=== PATIENT | female | born 1985 | race Caucasian/White ===

== ENCOUNTER 2016-12-20 02:26 | Observation (INO) | payer MEDICARE, MEDICAID ==
[~2016-12-20] VITALS: Ht 167.6 cm; Wt 137.3 kg
[2016-12-20] VITALS (9 sets, daily range): BP systolic 93–137; BP diastolic 49–89; Ht 167.6 cm; Wt 137.3 kg
[2016-12-20 03:08] LABS: APPEARANCE CLEAR (CLEAR); COLOR YELLOW (YELLOW)
[2016-12-20 03:09] LABS: BILIRUBIN NEGATIVE (NEGATIVE); GLUCOSE NEGATIVE (NEGATIVE); KETONE NEGATIVE (NEGATIVE); LEUKOCYTE ESTERASE NEGATIVE (NEGATIVE); NITRITE NEGATIVE (NEGATIVE); PROTEIN NEGATIVE (NEGATIVE); UROBILINOGEN NORMAL (NORMAL)
[2016-12-20 03:14] LABS: BASOPHILS 0.2 % (0.0-2.0); EOSINOPHILS 2.8 % (0-7); HEMATOCRIT 34.4 % (36.0-48.0); IMMATURE GRANULOCYTES 0.8 % (0-5); LYMPHOCYTES 23.8 % (15-50); MCH 27.7 pg (26.0-34.0); MCV 86.6 fL (80.0-100.0); MEAN PLATELET VOLUME 9.6 fL (7.4-10.4); NEUTROPHILS 67.4 % (40-80); PLATELET COUNT 378 10x3/uL (130-400); RBC 3.97 10x6/uL (4.00-5.40); RDW 16.2 % (11.5-14.5); WBC 10.6 10x3/uL (4.8-10.8)
[2016-12-20 03:15] LABS: UDS - AMPHET NEGATIVE QUAL (NEGATIVE); UDS - BARB NEGATIVE QUAL (NEGATIVE); UDS - BENZO POSITIVE QUAL (NEGATIVE); UDS - COCAINE NEGATIVE QUAL (NEGATIVE); UDS - METH NEGATIVE QUAL (NEGATIVE); UDS - OPIATE NEGATIVE QUAL (NEGATIVE); UDS - PCP NEGATIVE QUAL (NEGATIVE); UDS - THC POSITIVE QUAL (NEGATIVE)
[2016-12-20 03:21] LABS: HCG SERUM NEGATIVE (NEGATIVE)
[2016-12-20 03:29] LABS: ALBUMIN 2.8 g/dL (3.4-5.0); ALKALINE PHOSPHATASE 97 U/L (46-116); ALT (SGPT) 31 U/L (10-68); BILIRUBIN - TOTAL 0.13 mg/dL (0.2-1.3); CALC OSMOLALITY 280 mosm/kg (275-300); CALCIUM 8.5 mg/dL (8.5-10.1); CARBON DIOXIDE 29.8 mmol/L (21.0-32.0); CHLORIDE - SERUM 104 mmol/L (98-107); CREATININE - SERUM 0.8 mg/dL (0.6-1.3); GLUCOSE 96 mg/dL (74-106); POTASSIUM - SERUM 3.7 mmol/L (3.5-5.1); PROTEIN - SERUM 6.8 g/dL (6.4-8.2); SODIUM 141 mmol/L (136-145); UREA NITROGEN 12 mg/dL (7-18); eGFR NON AFRICAN AMERICAN 90 mL/min (90-120)
--- NOTE | 2016-12-20 05:45 | NUR ---
PT ARRIVED TO ICU VIA HOSPITAL BED. PT LETHARGIC; AROUSES TO VOICE. ON 2L VIA NC. NON SLIP SOCKS PLACED ON PT. BED ALARMS ON. PHONE AND VALUABLES SENT HOME WITH . WILL CONTINUE TO MONITOR.
--- NOTE | 2016-12-20 07:00 | NUR ---
ASSESSMENT COMPLETE PER FLOWSHEET. PT SLEEPING NO DISTRESS NOTED. SR UP X 2.
--- NOTE | 2016-12-20 10:00 | NUR ---
SLEEPING NO DISTRESS NOTED. SR UP X 2. CALL LIGHT WITHIN REACH.
--- NOTE | 2016-12-20 14:00 | NUR ---
AWAKEN AND WANTING TO EAT. INSISTING ON [place] BEING TAKEN OUT AND DCD.
--- NOTE | 2016-12-20 14:45 | NUR ---
CORRINA SOLARES APN HERE VSS. PT IS MEDICALLY STABLE FOR DISCHARGE.
--- NOTE | 2016-12-20 15:01 | NUR ---
PATIENT IS AWAKE AND ALERT. SHE IS TEARY AND DEPRESSED ABOUT NOT BEING ABLE TO SEE HER 4 YR OLD DAUGHTER. SHE STATES SHE HAS BEEN IN [facility] TWICE AND [facility] ONCE WITH PREVIOUS SUICIDE ATTEMPTS. I HAVE CONTACTED [facility] IN [place] AND SPOKE WITH PENNY. I HAVE FAXED HER INFORMATION TO HER FOR REVIEW. PATIENT STATES SHE IS WILLING TO GO TO INPATIENT PSYCH. SHE IS CONCERNED ABOUT A COURT DATE IN 2 DAYS. I URGED HER TO LET THEM KNOW SHE A COURT DATE AND IF SHE IS NOT ABLE TO GO THEY WILL ASSIST HER IN LETTING THE COURTS KNOW WHY. WILL AWAIT DETERMINATION FOR [facility].
--- NOTE | 2016-12-20 15:04 | NUR ---
PATIENT IS AWAKE AND ALERT. SHE IS TEARY AND DEPRESSED ABOUT NOT BEING ABLE TO SEE HER 4 YR OLD DAUGHTER. SHE STATES SHE HAS BEEN IN [facility] TWICE AND [facility] ONCE WITH PREVIOUS SUICIDE ATTEMPTS. I HAVE CONTACTED [facility] IN [place] AND SPOKE WITH PENNY. I HAVE FAXED HER INFORMATION TO HER FOR REVIEW. PATIENT STATES SHE IS WILLING TO GO TO INPATIENT PSYCH. SHE IS CONCERNED ABOUT A COURT DATE IN 2 DAYS. I URGED HER TO LET THEM KNOW SHE A COURT DATE AND IF SHE IS NOT ABLE TO GO THEY WILL ASSIST HER IN LETTING THE COURTS KNOW WHY. WILL AWAIT DETERMINATION FOR [facility]. PATIENT'S PCP IS DR. REIS. SHE GETS HER MEDS FROM [facility]. PATIENT STATES SHE IS NOT EMPLOYED SHE IS DISABLED. PATIENT DENIES [facility] HOME HEALTH AND DOES NOT USE ANY DME. PATIENT STATES 5-6 STEPS TO ENTER HER HOME. Is the patient Alert and Oriented? Yes 0 * How many steps to enter\exit or inside your home? 5-6 0 * PCP DR. REIS 0 * Pharmacy [facility] ON [address] 0 * Preadmission Environment Home Alone 0 * ADLs Independent 0 * Equipment None 0 * List name and contact numbers for known caregivers / representatives who currently or will assist patient after discharge: MOTHER: KENNEDY LUNA [phone] 0 * Community resources currently utilized None 0 * Additional services required to return to the preadmission environment? Yes 0 * Can the patient safely return to the preadmission environment? No 0 * Has this patient been hospitalized within the prior 30 days at any hospital? No 0
--- NOTE | 2016-12-20 15:31 | NUR ---
PT WANTING TO LEAVE BEING DISRUPTIVE. [place] [employer] CALLED.
--- NOTE | 2016-12-20 15:39 | NUR ---
PT RETURN BACK TO ROOM. TALKING TO PHILIPPE SAFETY ADMINISTRATOR RN ABOUT DAUGHTER.
--- NOTE | 2016-12-20 16:16 | NUR ---
PATIENT'S NURSE, NINO VASQUEZ, JONATHNA, RECEIVIED CALL FROM [facility] IN [place]. THEY STATED THEY WOULD NOT BE ABLE TO ACCEPT PATIENT UNTIL 24 HOURS POST INGESION. THAT WOULD BE AT 0100. I WILL CALL THEM IN AM FOR POSSIBLE PLACEMENT. CM TO FOLLOW.
--- NOTE | 2016-12-20 18:00 | NUR ---
[facility] IN [place] CALLED WANTED TO SPEAK TO PT. PT ON PHONE SPEAKING TO NURSE. NURSE AT [facility] STATES PT DOESNT WANT TO COME ON OWN WILL WILL NEED TO GET A 72 HOUR HOLD TO BE ACCEPTED AND PAPER WORK WILL NEED TO BE FAXED. DR MILES CALLED AND INSTRUCTED ALL ABOVE.
--- NOTE | 2016-12-20 19:30 | NUR ---
ASSESSMENT COMPLETE. S1S2. RR SHALLOW; CLEAR; NON LABORED. RADIAL AND PEDAL PULSES PALPATED. PERRLA 2MM; BRISK. NO SIGNS OF DISTRESS. CALL LIGHT IN REACH. WILL CONTINUE TO MONITOR. SEE FLOW SHEET FOR DETAILS.
--- NOTE | 2016-12-20 20:28 | NUR ---
PT INFORMED OF RIGHTS; SIGNED FORMS. PT INFORMED OF CONSENT TO TRANSFER TO [facility]; PT SIGNED FORMS. PT EXPRESSES CONCERNS THAT NO MATTER WHERE SHE GOES SHE WILL NEVER GET THE HELP SHE NEEDS. PT STATES SHE IS DEPRESSED BECAUSE NOTHING IS WORKING IN HER LIFE.
--- NOTE | 2016-12-20 21:45 | NUR ---
SPOKE WITH PRESTON GURROLA RN FROM [facility]. GAVE REPORT ON PT. PT ACCEPTED INTO FACILITY. AMBULANCE CALLED TO [facility] PT.
--- NOTE | 2016-12-20 22:30 | NUR ---
[facility] PICKED UP PT TO TRANSFER OUT.
== END 2016-12-20 22:30 | disposition short-term general hospital (02) ==
LOC: D.ER 02:26 → OBSVTIME 05:06 → D.ICU 05:06
PROVIDERS: Emergency Medicine; ADMIT Emergency Medicine
DX: T14.91 Suicide attempt (principal)

== ENCOUNTER 2017-11-08 14:45 | Emergency (ER) | payer MEDICARE ==
[2016-12-20 08:56] VITALS: BMI 48.8
== END 2017-11-08 17:02 | disposition home or self-care (01) ==
LOC: D.ER 14:45
DX: S61.452A Open bite of left hand, initial encounter (principal); S61.451A Open bite of right hand, initial encounter; W54.0XXA Bitten by dog, initial encounter; Y93.89 Activity, other specified; Y92.019 Unspecified place in single-family (private) house as the place of occurrence of the external cause; B35.4 Tinea corporis

== ENCOUNTER 2018-12-05 21:01 | Emergency (ER) | payer OTHER ==
[~2018-12-05] VITALS: Ht 157.5 cm; Wt 106.8 kg
[2018-12-05 21:12] VITALS: Ht 157.5 cm; Wt 106.8 kg
[2018-12-05] MEDS ORDERED: PROZAC40 MG PO (21:14)
[2018-12-05] MEDS ORDERED: MINIPRESS2 MG PO (21:14)
[2018-12-05] MEDS ORDERED: TOPAMAX50 MG PO (21:15)
[2018-12-05 21:45] LABS: BASOPHILS 0.1 % (0-2); EOSINOPHILS 1.2 % (0-7); HEMATOCRIT 38.3 % (36.0-48.0); HEMOGLOBIN 12.3 g/dL (12-16); IMMATURE GRANULOCYTES 0.3 % (0-5); LYMPHOCYTES 13.1 % (15-50); MCH 26.4 pg (26.0-34.0); MCHC 32.1 g/dL (31.0-37.0); MCV 82.2 fL (80.0-100.0); MEAN PLATELET VOLUME 10.3 fL (7.4-10.4); NEUTROPHILS 82.3 % (40-80); PLATELET COUNT 354 10x3/uL (130-400); RBC 4.66 10x6/uL (4.00-5.40); RDW 16.5 % (11.5-14.5); WBC 13.8 10x3/uL (4.8-10.8)
[2018-12-05 22:01] LABS: UDS - AMPHET NEGATIVE QUAL (NEGATIVE); UDS - BARB NEGATIVE QUAL (NEGATIVE); UDS - BENZO NEGATIVE QUAL (NEGATIVE); UDS - COCAINE NEGATIVE QUAL (NEGATIVE); UDS - OPIATE NEGATIVE QUAL (NEGATIVE); UDS - PCP NEGATIVE QUAL (NEGATIVE); UDS - THC POSITIVE QUAL (NEGATIVE)
[2018-12-05 22:02] LABS: APPEARANCE HAZY (CLEAR); BILIRUBIN NEGATIVE (NEGATIVE); COLOR RED (YELLOW); GLUCOSE NEGATIVE (NEGATIVE); KETONE NEGATIVE (NEGATIVE); NITRITE NEGATIVE (NEGATIVE); PROTEIN 1+ mg/dL (NEGATIVE); UROBILINOGEN NORMAL (NORMAL)
[2018-12-05 22:03] LABS: ALBUMIN 3.1 g/dL (3.4-5.0); ALKALINE PHOSPHATASE 102 U/L (46-116); ALT (SGPT) 17 U/L (10-68); BILIRUBIN - TOTAL 0.14 mg/dL (0.2-1.3); CALC OSMOLALITY 278 mosm/kg (275-300); CALCIUM 8.1 mg/dL (8.5-10.1); CARBON DIOXIDE 21.7 mmol/L (21.0-32.0); CHLORIDE - SERUM 106 mmol/L (98-107); CREATININE - SERUM 0.7 mg/dL (0.6-1.3); GLUCOSE 94 mg/dL (74-106); POTASSIUM - SERUM 3.8 mmol/L (3.5-5.1); PROTEIN - SERUM 6.9 g/dL (6.4-8.2); SODIUM 140 mmol/L (136-145); UREA NITROGEN 12 mg/dL (7-18); eGFR NON AFRICAN AMERICAN > 90 mL/min (90-120)
[2018-12-05 22:04] LABS: BACTERIA FEW /hpf (NONE SEEN); EPITHELIAL CELLS 0-5 /hpf (0-5); HCG URINE NEGATIVE (NEGATIVE); RED CELLS - URINE >50 /hpf (0-5); WHITE CELLS - URINE 0-5 /hpf (0-5)
[2018-12-05] MEDS ORDERED: VISTARIL25 MG PO (22:13)
[2018-12-05 23:38] VITALS: BP 141/71
== END 2018-12-05 23:38 | disposition home or self-care (01) ==
LOC: D.ER 21:01
PROVIDERS: Family Medicine
DX: F41.9 Anxiety disorder, unspecified (principal); F41.0 Panic disorder [episodic paroxysmal anxiety]

== ENCOUNTER 2019-01-14 12:50 | Emergency (ER) | payer OTHER, MEDICAID ==
[~2019-01-14] VITALS: Ht 157.5 cm; Wt 102.7 kg
[~2019-01-14 12:50] MED LIST: MINIPRESS2 MG PO; PROZAC40 MG PO; TOPAMAX50 MG PO; VISTARIL25 MG PO
[2019-01-14 13:00] VITALS: BP 143/80; Ht 157.5 cm; Wt 102.7 kg
== END 2019-01-14 14:56 | disposition home or self-care (01) ==
LOC: D.ER 12:50
DX: F22 Delusional disorders (principal); F60.3 Borderline personality disorder; Z86.59 Personal history of other mental and behavioral disorders

== ENCOUNTER 2019-01-25 16:34 | Emergency (ER) | payer OTHER, MEDICAID ==
[~2019-01-25] VITALS: Ht 157.5 cm; Wt 68.2 kg
[2019-01-25 17:05] VITALS: Ht 157.5 cm; Wt 68.2 kg
[2019-01-25 17:31] LABS: APPEARANCE CLEAR (CLEAR); BILIRUBIN NEGATIVE (NEGATIVE); COLOR YELLOW (YELLOW); GLUCOSE NEGATIVE (NEGATIVE); KETONE MODERATE mg/dL (NEGATIVE); NITRITE NEGATIVE (NEGATIVE); PROTEIN NEGATIVE (NEGATIVE); SPECIFIC GRAVITY 1.015 (1.005-1.020); UDS - AMPHET NEGATIVE QUAL (NEGATIVE); UDS - BARB NEGATIVE QUAL (NEGATIVE); UDS - BENZO NEGATIVE QUAL (NEGATIVE); UDS - COCAINE NEGATIVE QUAL (NEGATIVE); UDS - OPIATE NEGATIVE QUAL (NEGATIVE); UDS - PCP NEGATIVE QUAL (NEGATIVE); UDS - THC POSITIVE QUAL (NEGATIVE); UROBILINOGEN NORMAL (NORMAL)
[2019-01-25 17:53] LABS: HCG URINE NEGATIVE (NEGATIVE)
[2019-01-25 17:58] LABS: BASOPHILS 0.1 % (0-2); EOSINOPHILS 0.4 % (0-7); HEMATOCRIT 39.4 % (36.0-48.0); HEMOGLOBIN 12.6 g/dL (12-16); IMMATURE GRANULOCYTES 0.2 % (0-5); LYMPHOCYTES 18.8 % (15-50); MCH 26.8 pg (26.0-34.0); MCV 83.7 fL (80.0-100.0); MONOCYTES 5.3 % (2-11); NEUTROPHILS 75.2 % (40-80); PLATELET COUNT 333 10x3/uL (130-400); RBC 4.71 10x6/uL (4.00-5.40); RDW 16.2 % (11.5-14.5); WBC 12.5 10x3/uL (4.8-10.8)
[2019-01-25 18:35] LABS: ALBUMIN 3.4 g/dL (3.4-5.0); ALKALINE PHOSPHATASE 115 U/L (46-116); ALT (SGPT) 20 U/L (10-68); BILIRUBIN - TOTAL 0.29 mg/dL (0.2-1.3); CALC OSMOLALITY 279 mosm/kg (275-300); CALCIUM 8.3 mg/dL (8.5-10.1); CARBON DIOXIDE 24.4 mmol/L (21.0-32.0); CHLORIDE - SERUM 106 mmol/L (98-107); CREATININE - SERUM 0.7 mg/dL (0.6-1.3); GLUCOSE 99 mg/dL (74-106); POTASSIUM - SERUM 3.7 mmol/L (3.5-5.1); PROTEIN - SERUM 7.4 g/dL (6.4-8.2); SODIUM 141 mmol/L (136-145); UREA NITROGEN 9 mg/dL (7-18); eGFR NON AFRICAN AMERICAN > 90 mL/min (90-120)
[2019-01-25 18:38] LABS: MAGNESIUM - SERUM 2.1 mg/dL (1.8-2.4)
[2019-01-26 00:11] VITALS: BP 115/71
== END 2019-01-26 00:12 ==
LOC: D.ER 16:34
PROVIDERS: Family Medicine
DX: R45.851 Suicidal ideations (principal); F29 Unspecified psychosis not due to a substance or known physiological condition; F31.9 Bipolar disorder, unspecified